=== PATIENT | male | born 1980 | race African-American/Black ===

== ENCOUNTER 2020-01-10 16:41 | Inpatient (IN) | payer MEDICAID ==
[~2020-01-10] VITALS: Ht 167.6 cm; Wt 102.7 kg
[2020-01-10] MEDS ORDERED: SODIUM CHLORIDE 0.9% 1,000 ML IV ONE ×3 (17:10→20:30)
[2020-01-10] MEDS ORDERED: LORAZEPAM 2MG/ML CPJ IV ONE (17:15)
[2020-01-10 17:49] LABS: CHLORIDE 97 mEq/L (98-107)
[2020-01-10 17:52] LABS: BASOPHILS % 0.6 % (0.0-2.0); EOSINOPHILS % 0.1 % (0.0-5.0); HEMATOCRIT. 42.7 % (42.0-52.0); HEMOGLOBIN. 14.8 g/dL (14.0-18.0); LYMPHOCYTES % 17.6 % (20.0-50.0); MEAN CORPUSCULAR HEMOGLOBIN 30.8 pg (28.0-32.0); MEAN CORPUSCULAR VOLUME 89.1 fL (80.0-94.0); MEAN PLATELET VOLUME 8.8 fl (7.4-10.4); MONOCYTES % 13.1 % (2.0-8.0); NEUTROPHILS % 68.6 % (40.0-76.0); PLATELET 250 x1000/uL (130-400); RED BLOOD CELL COUNT 4.79 mill/uL (4.7-6.1); RED CELL DISTRIBUTION WIDTH 12.9 % (11.6-14.6)
[2020-01-10 17:53] LABS: ETHANOL BLOOD < 10 mg/dL
[2020-01-10 18:07] LABS: INR 1.1; PROTHROMBIN TIME 11.7 sec (9.6-11.0)
[2020-01-10 18:10] LABS: CREATINE KINASE 2778 IU/L (39-308)
[2020-01-10 19:01] LABS: CLARITY URINE CLEAR (CLEAR); COLOR URINE YELLOW (YELLOW); KETONES URINE TRACE (NEGATIVE); LEUKOCYTE ESTERASE URINE NEGATIVE (NEGATIVE); NITRITE URINE NEGATIVE (NEGATIVE); OCCULT BLOOD URINE NEGATIVE (NEGATIVE); PH URINE 6.5 (4.5-8.0); PROTEIN URINE NEGATIVE (NEGATIVE); SPECIFIC GRAVITY URINE 1.008 (1.005-1.030); UROBILINOGEN URINE 0.2 E.U./dL (0.2-1.0)
[2020-01-10 19:22] LABS: PHENCYCLIDINE URINE SCREEN NEGATIVE (NEGATIVE)
[2020-01-10 19:23] LABS: *AMPHETAMINES SCREEN URINE PRESUMTIVE POSITIVE (NEGATIVE); *BARBITURATES SCREEN URINE NEGATIVE (NEGATIVE); *BENZODIAZEPINES SCREEN URINE NEGATIVE (NEGATIVE); *COCAINE SCREEN URINE PRESUMTIVE POSITIVE (NEGATIVE); CANNABINOID URINE SCREEN NEGATIVE (NEGATIVE); METHADONE URINE SCREEN NEGATIVE (NEGATIVE); OPIATES URINE SCREEN NEGATIVE (NEGATIVE)
[2020-01-10] MEDS ORDERED: SODIUM CHLORIDE 0.9% 1,000 ML IV NR (19:30)
[2020-01-10 20:20] LABS: CREATINE KINASE 2784 IU/L (39-308)
[2020-01-10] MEDS ORDERED: DOCUSATE SODIUM 100MG CAPSULE PO PRN (23:00)
[2020-01-10] MEDS ORDERED: IPRATROPIUM/ALBUTEROL 0.5-3(2.5)MG/3ML NEB NEB PRN (23:00)
[2020-01-10] MEDS ORDERED: ONDANSETRON HCL 4MG/2ML INJ IV PRN (23:00)
[2020-01-10] MEDS ORDERED: ACETAMINOPHEN 325MG TABLET PO PRN (23:00)
[2020-01-10] MEDS ORDERED: LORAZEPAM 2MG/ML CPJ IV PRN (23:00)
[2020-01-11] VITALS (11 sets, daily range): BP systolic 100–144; BP diastolic 51–85
[2020-01-11] MEDS: HEPARIN 5000 UNITS/ML VIAL SUBCUT SCH ×3 (06:32→21:53)
[2020-01-11] MEDS: SODIUM CHLORIDE 0.9% 1,000 ML IV SCH ×3 (06:33→23:53)
[2020-01-11 09:41] LABS: HEMOGLOBIN. 13.6 g/dL (14.0-18.0); MEAN CORPUSCULAR HEMOGLOBIN 30.5 pg (28.0-32.0); MEAN CORPUSCULAR VOLUME 89.7 fL (80.0-94.0); MEAN PLATELET VOLUME 8.6 fl (7.4-10.4); PLATELET 220 x1000/uL (130-400); RED BLOOD CELL COUNT 4.46 mill/uL (4.7-6.1); RED CELL DISTRIBUTION WIDTH 13.1 % (11.6-14.6)
[2020-01-11 09:57] LABS: CHLORIDE 106 mEq/L (98-107)
[2020-01-11 10:07] LABS: LDL CHOLESTEROL 73 mg/dL (5-100)
[2020-01-11 10:09] LABS: CREATINE KINASE MB FRACTION 9.8 ng/mL (0.5-3.6); HDL CHOLESTEROL 38 mg/dL (40-59)
[2020-01-11 10:21] LABS: CREATINE KINASE 2218 IU/L (39-308)
[2020-01-11] MEDS ORDERED: POTASSIUM CHLORIDE 20MEQ/PACKET PO NR (11:15)
[2020-01-11 12:27] LABS: ATYPICAL LYMPHOCYTES 1
[2020-01-11 12:28] LABS: PLATELET ESTIMATE NORMAL
[2020-01-11 16:24] LABS: CREATINE KINASE 2156 IU/L (39-308)
[2020-01-12] VITALS (10 sets, daily range): BP systolic 90–124; BP diastolic 22–77
[2020-01-12 06:25] LABS: BASOPHILS % 0.6 % (0.0-2.0); EOSINOPHILS % 2.7 % (0.0-5.0); HEMOGLOBIN. 13.4 g/dL (14.0-18.0); LYMPHOCYTES % 31.3 % (20.0-50.0); MEAN CORPUSCULAR HEMOGLOBIN 30.9 pg (28.0-32.0); MEAN CORPUSCULAR VOLUME 89.8 fL (80.0-94.0); MEAN PLATELET VOLUME 8.7 fl (7.4-10.4); MONOCYTES % 12.6 % (2.0-8.0); NEUTROPHILS % 52.8 % (40.0-76.0); PLATELET 206 x1000/uL (130-400); RED BLOOD CELL COUNT 4.34 mill/uL (4.7-6.1); RED CELL DISTRIBUTION WIDTH 13.1 % (11.6-14.6)
[2020-01-12 06:35] LABS: CHLORIDE 109 mEq/L (98-107)
[2020-01-12] MEDS: HEPARIN 5000 UNITS/ML VIAL SUBCUT SCH ×3 (06:37→22:00)
[2020-01-12] MEDS: SODIUM CHLORIDE 0.9% 1,000 ML IV SCH ×3 (06:42→22:39)
[2020-01-12 08:00] LABS: CREATINE KINASE 1526 IU/L (39-308)
[2020-01-13] VITALS: BP 95/47
[2020-01-13 02:00] VITALS: BP 109/72
[2020-01-13 04:00] VITALS: BP 129/79
[2020-01-13] MEDS: HEPARIN 5000 UNITS/ML VIAL SUBCUT SCH (05:40)
[2020-01-13 06:00] VITALS: BP 120/77
[2020-01-13] MEDS: SODIUM CHLORIDE 0.9% 1,000 ML IV SCH (06:54)
[2020-01-13 08:42] VITALS: BP 123/69
== END 2020-01-13 10:30 | disposition home or self-care (01) | DRG 137 ==
LOC: ER 16:41 → EDBEDREQ 21:04 → EDBEDREQTM 21:04 → MICUSO 22:24 → 3WST 01-11 02:08
PROVIDERS: ADMIT Internal Medicine; ATTEND Internal Medicine
DX: U07.1 COVID-19 (principal); N17.9 Acute kidney failure, unspecified; M62.82 Rhabdomyolysis; E87.1 Hypo-osmolality and hyponatremia; T43.621A Poisoning by amphetamines, accidental (unintentional), initial encounter; M79.89 Other specified soft tissue disorders; E87.6 Hypokalemia; E86.0 Dehydration; Y92.89 Other specified places as the place of occurrence of the external cause; Z71.51 Drug abuse counseling and surveillance of drug abuser
CPT/HCPCS: 36415; 71045; 73030; 80048; 80053; 80061; 80305; 80320; 81003; 82550; 82553; 83735; 84443; 84484; 85025; 93005; 93970; 96374; 99285; J1644; J2060; J7030; G0480; U0003-CS